=== PATIENT | female | born 1950 | race Caucasian/White ===

== ENCOUNTER 2020-11-16 16:38 | Emergency (ER) | payer MEDICARE, OTHER ==
[~2020-11-16] VITALS: Ht 157.4 cm; Wt 94.7 kg
[2020-11-16 16:54] VITALS: BP 143/82
[2020-11-16] MEDS ORDERED: KETOROLAC 60 MG/2 ML VIAL IM ONE (17:15)
--- NOTE | 2020-11-16 17:28 | ED Neck-Back Pain/Injury ---
General Chief Complaint: Head/Cervical Problems Stated Complaint: NECK PAIN History of Present Illness Date Seen by Provider: Nov 16, 2020 Time Seen by Provider: 17:00 Initial Comments Patient with history of RA not on therapy who presents with neck lower posterior neck pain for the past past 13 days. No radicular symptoms. No cough, fever, chills, sweats, of cough. Location: C-Spine Timing/Duration: Other Pain/Injury Location: Other Method of Injury: Other Modifying Factors: Improves With Other Associated Symptoms: other Allergies and Home Medications Allergies Coded Allergies: loratadine (Verified Allergy, Mild, Rash, 11/16/20) Sulfa (Sulfonamide Antibiotics) (Verified Allergy, Unknown, 11/16/20) Heart attack/stroke like symptoms bee venom protein (honey bee) (Verified Allergy, Unknown, Anaphylaxis, 11/16/20) ferrous fumarate (Verified Allergy, Unknown, Shortness of Breath, 11/16/20) methotrexate (Verified Allergy, Unknown, Rash, 11/16/20) prednisone (Verified Allergy, Unknown, 11/16/20) Hypertension rabbit dander (Verified Allergy, Unknown, Shortness of Breath, 11/16/20) tocilizumab (Verified Adverse Reaction, Unknown, 11/16/20) Insomnia Uncoded Allergies: Narcotics (Allergy, Severe, Shortness of Breath, 11/16/20) Home Medications Diazepam 10 Mg Tablet, 10 MG PO Q12H Prescribed by: CHRISTINA TALLEY on 11/16/201735 Methylprednisolone 4 Mg Tab.ds.pk, 4 MG PO UD PER DOSE PACK INSTRUCTIONS Prescribed by: CHRISTINA TALLEY on 11/16/201735 Patient Home Medication List Home Medication List Reviewed: Yes Review of Systems Constitutional: see HPI EENTM: see HPI Respiratory: see HPI Cardiovascular: see HPI Gastrointestinal: see HPI : Yes Musculoskeletal: see HPI Skin: see HPI Psychiatric/Neurological: See HPI All Other Systems Reviewed Negative Unless Noted: Yes Past Cxmyehj-Tncmtb-Olyecr Hx Past Med/Social Hx: Reviewed Nursing Past Med/Soc Hx Physical Exam Vital Signs Vital Signs - First Documented 11/16/20 16:54 Temp 36.9 Pulse 88 Resp 20 B/P (MAP) 143/82 (102) Pulse Ox 97 O2 Delivery Room Air Capillary Refill : Height, Weight, BMI Height: '" Weight: lbs. oz. kg; BMI Method: General Appearance: No Apparent Distress, Anxious HEENT: PERRL/EOMI, Pharynx Normal Neck: Supple, Other (Supple, diffuse lower neck pain, spamsm and tenderness . Pain reproduces with ROM. ) Cardiovascular: Regular Rate, Rhythm, Normal Peripheral Pulses Respiratory: Lungs Clear Gastrointestinal: Non Tender, Soft Back: Normal Inspection Extremity: Normal Capillary Refill, Normal Inspection, No Calf Tenderness Neurologic/Psychiatric: Alert, Oriented x3 Progress/Results/Core Measures Results/Orders My Orders Orders - CHRISTINA TALLEY DO Ketorolac Injection (Toradol Injection) (11/16/20 17:15) Medications Given in ED Current Medications Medications Dose Ordered Sig/Dong Route Start Time Stop Time Status Last Admin Dose Admin Ketorolac Tromethamine 60 mg ONCE ONCE IM 11/16/20 17:15 11/16/20 17:16 DC 11/16/20 17:33 60 MG Vital Signs/I&O 11/16/20 16:54 Temp 36.9 Pulse 88 Resp 20 B/P (MAP) 143/82 (102) Pulse Ox 97 O2 Delivery Room Air Departure Communication (Admissions) Reproducible neck pain, No focal neuro deficits, or signs of infection. Will treat supportively with PCP follow up. Impression Primary Impression: Cervical myofascial strain Disposition: HOME, SELF-CARE Condition: Stable Departure-Patient Inst. Decision time for Depature: 17:36 Referrals: NO,LOCAL PHYSICIAN (PCP) Primary Care Physician Patient Instructions: Cervical Muscle Strain Add. Discharge Instructions: All discharge instructions reviewed with patient and/or family. Voiced understanding. Scripts Methylprednisolone (Methylprednisolone Dose Pack) 4 Mg Tab.ds.pk 4 MG PO UD for 6 Days, #21 PKG PER DOSE PACK INSTRUCTIONS Prov: CHRISTINA TALLEY DO 11/16/20 Diazepam (Valium) 10 Mg Tablet 10 MG PO Q12H, #20 TAB Prov: CHRISTINA TALLEY DO 11/16/20 CHRISTINA TALLEY DO Nov 16, 2020 17:28
[2020-11-16] MEDS ORDERED: DIAZ10TA PO (17:36)
[2020-11-16] MEDS ORDERED: METH4TAB10 PO (17:36)
== END 2020-11-16 17:49 | disposition home or self-care (01) ==
LOC: ER FS 16:40
DX: S16.1XXA Strain of muscle, fascia and tendon at neck level, initial encounter (principal); F41.9 Anxiety disorder, unspecified; Z88.2 Allergy status to sulfonamides; Z88.8 Allergy status to other drugs, medicaments and biological substances; Z79.52 Long term (current) use of systemic steroids; X58.XXXA Exposure to other specified factors, initial encounter
CPT/HCPCS: 99284

== ENCOUNTER 2023-01-22 15:59 | Emergency (ER) | payer MEDICARE ==
[~2023-01-22 15:59] MED LIST: DIAZ10TA PO; METH4TAB10 PO
[2023-01-22] MEDS ORDERED: NS IV 500 ML 500 ML IV STA (16:09)
--- NOTE | 2023-01-22 16:14 | ED Neurological Problem ---
General Stated Complaint: STROKE LIKE SYMPTOMS Source: patient, EMS Exam Limitations: no limitations History of Present Illness Date Seen by Provider: Jan 22, 2023 Time Seen by Provider: 15:59 Initial Comments 72-year-old female with past medical history most notable for rheumatoid arthritis, osteoarthritis, and irritable bowel syndrome coming in via EMS from the clinic due to numbness. Patient started feeling "off" just before 3 PM today. She noticed some tingling in her left side. Has been ambulating. Was seen in the clinic and they called EMS. She denies this ever happening before, denies any cardiac history, no history of A-fib, does not smoke, no prior stroke, does not take any blood thinners, no chest pain, shortness of breath, abdominal pain, nausea, vomiting, diarrhea, fever, chills, focal weakness, vision changes, headache, neck stiffness, or any other concerns. Allergies and Home Medications Allergies Coded Allergies: loratadine (Verified Allergy, Mild, Rash, 11/16/20) Sulfa (Sulfonamide Antibiotics) (Verified Allergy, Unknown, 11/16/20) Heart attack/stroke like symptoms bee venom protein (honey bee) (Verified Allergy, Unknown, Anaphylaxis, 11/16/20) ferrous fumarate (Verified Allergy, Unknown, Shortness of Breath, 11/16/20) methotrexate (Verified Allergy, Unknown, Rash, 11/16/20) prednisone (Verified Allergy, Unknown, 11/16/20) Hypertension rabbit dander (Verified Allergy, Unknown, Shortness of Breath, 11/16/20) tocilizumab (Verified Adverse Reaction, Unknown, 11/16/20) Insomnia Uncoded Allergies: Narcotics (Allergy, Severe, Shortness of Breath, 11/16/20) Patient Home Medication List Home Medication List Reviewed: Yes Diazepam (Valium) 10 Mg Tablet, 10 MG PO Q12H Prescribed by: CHRISTINA TALLEY on 11/16/201735 Doxycycline Hyclate (Doxycycline Hyclate) 100 Mg Tablet, 100 MG PO BID Prescribed by: DEBRA CASTELLANOS on 01/22/23 180 Methylprednisolone (Methylprednisolone Dose Pack) 4 Mg Tab.ds.pk, 4 MG PO UD Prescribed by: CHRISTINA TALLEY on 11/16/201735 Review of Systems Review of Systems Constitutional: see HPI Eyes: No Symptoms Reported Respiratory: no symptoms reported Cardiovascular: no symptoms reported Gastrointestinal: no symptoms reported Genitourinary: no symptoms reported Musculoskeletal: no symptoms reported Skin: no symptoms reported Psychiatric/Neurological: See HPI Past Oizfuxo-Tbuzgv-Orlpxy Hx Patient Social History Tobacco Use?: No Seasonal Allergies Seasonal Allergies: No Past Medical History Surgeries: No Respiratory: Yes Asthma, Chronic Bronchitis, COPD Cardiac: No Neurological: No Genitourinary: No Gastrointestinal: Yes Gastroesophageal Reflux, Irritable Bowel Musculoskeletal: No Rheumatoid Arthritis Endocrine: Yes Hypothyroidsim HEENT: No Cancer: No Psychosocial: No Integumentary: No Blood Disorders: No Physical Exam Vital Signs Vital Signs - First Documented 01/22/23 16:02 Temp 36.2 Pulse 72 Resp 16 B/P (MAP) 171/94 (119) Pulse Ox 94 O2 Delivery Room Air Capillary Refill : Height, Weight, BMI Height: '" Weight: lbs. oz. kg; 38.00 BMI Method: General Appearance: WD/WN, no apparent distress HEENT: PERRL/EOMI, normal ENT inspection, pharynx normal Neck: non-tender, full range of motion, supple, normal inspection Respiratory: chest non-tender, lungs clear, normal breath sounds, no respira tory distress, no accessory muscle use Cardiovascular: regular rate, rhythm, no edema, no murmur Gastrointestinal: normal bowel sounds, non tender; No distended, No guarding, No rebound Back: normal inspection, no CVA tenderness Extremities: normal range of motion, non-tender, normal inspection, no pedal edema, no calf tenderness, normal capillary refill Neurologic/Psychiatric: jockey's agent II-XII nml as tested, no motor/sensory deficits, alert, normal mood/affect, oriented x 3, other (Normal visual rashid and visual acuity) Crainal Nerves: normal hearing, normal speech, PERRL Coordination/Gait: normal finger to nose, normal gait Motor/Sensory: no motor deficit, no sensory deficit, no pronator drift Skin: normal color, warm/dry Stroke Onset of Symptoms Date of Onset of Symptoms: Jan 22, 2023 Time of Symptom Onset: 14:50 Onset of Symptoms: Yes NIH Stroke Scale Assessment Select: Initial Level of Consciousness: 0=Alert (0), Level of Consciousness- Questions: 0=Answers both month/age (0), LOC Commands: 0=Performs both tasks (0), Visual Rashid: 0=No visual loss (0), Facial Movement (Facial Paresis): 0=Normal symmetrical mnt (0), Motor Function-Arms Right: 0=No drift (0), Motor Function-Legs Right: 0=No drift (0), Limb Ataxia: 0=Absent (0), Sensory: 0=Normal:no loss (0), Best Language: 0=No aphasia (0), Dysarthria: 0=Normal (0), Extinction & Inattention: 0=No abnormality (0), Total: 0 Stroke Thrombolytic Exclusion Age 18 or Over: Yes Acute intenal hemorrhage: No Improving Symptoms: Yes TPA Contraindication: Yes IV - TPa Received IV - TPa Procedure Performed?: No Progress/Results/Core Measures Results/Orders Lab Results Laboratory Tests Test 01/22/23 16:04 01/22/23 16:10 01/22/23 16:51 Range/Units Glucometer 115 H 70-110 MG/DL White Blood Count 9.3 4.3-11.0 10^3/uL Red Blood Count 4.96 3.80-5.11 10^6/uL Hemoglobin 14.4 11.5-16.0 g/dL Hematocrit 43 35-52 % Mean Corpuscular Volume 86 80-99 fL Mean Corpuscular Hemoglobin 29 25-34 pg Mean Corpuscular Hemoglobin Concent 34 32-36 g/dL Red Cell Distribution Width 14.0 10.0-14.5 % Platelet Count 401 H 130-400 10^3/uL Mean Platelet Volume 8.9 L 9.0-12.2 fL Immature Granulocyte % (Auto) 1 % Neutrophils (%) (Auto) 45 42-75 % Lymphocytes (%) (Auto) 40 12-44 % Monocytes (%) (Auto) 8 0-12 % Eosinophils (%) (Auto) 5 0-10 % Basophils (%) (Auto) 1 0-10 % Neutrophils # (Auto) 4.2 1.8-7.8 10^3/uL Lymphocytes # (Auto) 3.8 1.0-4.0 10^3/uL Monocytes # (Auto) 0.7 0.0-1.0 10^3/uL Eosinophils # (Auto) 0.5 H 0.0-0.3 10^3/uL Basophils # (Auto) 0.1 0.0-0.1 10^3/uL Immature Granulocyte # (Auto) 0.1 0.0-0.1 10^3/uL Prothrombin Time 12.9 12.2-14.7 SEC INR Comment 0.9 0.8-1.4 Activated Partial Thromboplast Time 29 24-35 SEC Sodium Level 138 135-145 MMOL/L Potassium Level 4.1 3.6-5.0 MMOL/L Chloride Level 102 98-107 MMOL/L Carbon Dioxide Level 25 21-32 MMOL/L Anion Gap 11 5-14 MMOL/L Blood Urea Nitrogen 19 H 7-18 MG/DL Creatinine 0.88 0.60-1.30 MG/DL Estimat Glomerular Filtration Rate 69 BUN/Creatinine Ratio 22 Glucose Level 111 H 70-105 MG/DL Calcium Level 8.8 8.5-10.1 MG/DL Corrected Calcium 9.1 8.5-10.1 MG/DL Total Bilirubin 0.3 0.1-1.0 MG/DL Aspartate Amino Transf (AST/SGOT) 40 H 5-34 U/L Alanine Aminotransferase (ALT/SGPT) 21 0-55 U/L Alkaline Phosphatase 147 H 40-136 U/L Troponin I < 0.30 <0.30 NG/ML Total Protein 7.9 6.4-8.2 GM/DL Albumin 3.6 3.2-4.5 GM/DL Urine Color YELLOW Urine Clarity CLEAR Urine pH 5.5 5-9 Urine Specific [place] >=1.030 1.016-1.022 Urine Protein NEGATIVE NEGATIVE Urine Glucose (UA) NEGATIVE NEGATIVE Urine Ketones NEGATIVE NEGATIVE Urine Nitrite NEGATIVE NEGATIVE Urine Bilirubin NEGATIVE NEGATIVE Urine Urobilinogen 0.2 < = 1.0 MG/DL Urine Leukocyte Esterase NEGATIVE NEGATIVE Urine RBC (Auto) NEGATIVE NEGATIVE Urine RBC NONE /HPF Urine WBC NONE /HPF Urine Squamous Epithelial Cells 0-2 /HPF Urine Crystals NONE /LPF Urine Bacteria NEGATIVE /HPF Urine Casts NONE /LPF Urine Mucus NEGATIVE /LPF Urine Culture Indicated NO My Orders Orders - DEBRA CASTELLANOS MD Cbc With Automated Diff (01/22/23 16:09) Protime With Inr (01/22/23 16:09) Partial Thromboplastin Time (01/22/23 16:09) Comprehensive Metabolic Panel (01/22/23 16:09) Troponin I Fs (01/22/23 16:09) Ua Culture If Indicated (01/22/23 16:09) Chest 1 View Ap/Pa Only (01/22/23 16:09) Ekg Tracing (01/22/23 16:09) Accucheck Stat ONCE (01/22/23 16:09) Ed Iv/Invasive Line Start (01/22/23 16:09) Vital Signs Stroke Patient Q15M (01/22/23 16:09) Ct Head Wo-R/O Stroke (01/22/23 16:09) O2 (01/22/23 16:09) Intake & Output 06,14,22 (01/22/23 16:09) Monitor-Rhythm Ecg Trace Only (01/22/23 16:09) Dysphagia Screening Tool Q10MX1 (01/22/23 16:09) Ns Iv 500 Ml (Sodium Chloride 0.9%) (01/22/23 16:09) Ct Angio Head/Neck (01/22/23 17:03) Iohexol Injection (Omnipaque 350 Mg/Ml 1 (01/22/23 17:30) Received Contrast (Hold Metformin- Contr (01/22/23 17:30) Ns (Ivpb) (Sodium Chloride 0.9% Ivpb Bag (01/22/23 17:30) Medications Given in ED Current Medications Medications Dose Ordered Sig/Dong Route Start Time Stop Time Status Last Admin Dose Admin Iohexol 100 ml ONCE ONCE IV 01/22/23 17:30 01/22/23 17:31 DC 01/22/23 17:27 85 ML Sodium Chloride 100 ml ONCE ONCE IV 01/22/23 17:30 01/22/23 17:31 DC 01/22/23 17:27 100 ML Vital Signs/I&O 01/22/23 01/22/23 01/22/23 16:02 16:23 16:41 Temp 36.2 Pulse 72 70 Resp 16 16 B/P (MAP) 171/94 (119) 157/69 Pulse Ox 94 94 O2 Delivery Room Air Room Air Progress Progress Note : Progress Note 72-year-old female with above history coming in due to subjective left-sided weakness, tingling, and just feeling off. ABCs were intact and vitals were stable on presentation. Objectively, her NIH is 0 on arrival. The patient is ambulating with her cane at baseline despite her subjective weakness. Blood sugar was 115 on arrival which clearly is not the cause of her symptoms. An IV was placed and basic labs were obtained and were significant for a normal white blood cell count, normal creatinine, normal electrolytes essentially, negative troponin. Chest x-ray on my interpretation with no obvious pneumonia. Although the patient does have significant productive cough. CT head without contrast on my interpretation with no obvious intracranial hemorrhage. The radiologist read it as negative for acute findings. At this point I discussed the case with the stroke neurologist, Dr. Nix, at 16:58. She recommended a CT head and neck angiogram. If there is high-grade stenosis, the patient likely needs admission. If the CT angiogram is negative for any acute findings, the patient will need an outpatient MRI and echo within the next 1 to 2 weeks. She agrees that given there are no objective findings, she would not give tPA at this time. The CT angiogram of the head and neck were negative for any severe stenosis. 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 I believe the patient is stable for discharge with outpatient follow-up as she does appear to be completely neuro intact. She does have a significantly productive cough the entire time in the ER, we will send her home with a prescription for doxycycline as this may be causing worsening of her symptoms. She needs to have an MRI and echo ordered as an outpatient. I will write a prescription for her, however she may need prior authorization and may need to follow-up with her regular doctor to get this done. She was then discharged home in stable condition with strict return precautions. Initial ECG Impression Date: Jan 22, 2023 Initial ECG Impression Time: 16:34 Initial ECG Rhythm: Normal Sinus Comment Narrow QRS, normal axis, no significant ST changes or T wave abnormalities Diagnostic Imaging Diagonstic Imaging: Xray (chest), CT (head) Comments NAME: ILEANA SARAVIA Avery [facility] REC#: [id number] PT STATUS: REG ER : 1950 PHYSICIAN: DEBRA CASTELLANOS MD ADMIT DATE: 01/22/23/ER FS Draft Date of Exam:01/22/23 CT HEAD WO-R/O STROKE PROCEDURE: CT head wo r/o stroke. TECHNIQUE: Multiple contiguous axial images were obtained through the brain without the use of intravenous contrast. Auto Exposure Controls were utilized during the CT exam to meet ALARA standards for radiation dose reduction. INDICATION: Left weakness. CT HEAD: CT images of the head were obtained. FINDINGS: Ventricles and sulci are within normal limits for size. There is no intracranial hemorrhage identified. There is no abnormal mass effect or shift of midline structures. IMPRESSION: Unremarkable CT of the head. Dictated on workstation # [id number] Dict: 01/22/23 1633 Trans: 01/22/23 1640 AS6 [id number] Interpreted by: MARTIN YUAN MD Electronically signed by: ROBERT VIA PULLMAN, [place] NAME: ILEANA SARAVIA MED REC#: [id number] PT STATUS: REG ER : 1950 PHYSICIAN: DEBRA CASTELLANOS MD ADMIT DATE: 01/22/23/ER FS Draft Date of Exam:01/22/23 CHEST 1 VIEW AP/PA ONLY CLINICAL INDICATION: Patient with left-sided weakness and cough. EXAM: Portable chest x-ray upright view. COMPARISON: None. FINDINGS: Lungs/pleura: There are increased lung markings involving both lungs which may be related to atelectasis and/or scarring. There is no lung infiltrate. There is no pneumothorax. There is no pleural effusion. Mediastinum: Unremarkable. Pulmonary vasculature: Unremarkable. Heart: Unremarkable. Bones/extrathoracic soft tissue: There are degenerative spurs involving the thoracic spine. IMPRESSION: There is no radiographic evidence of acute cardiopulmonary process. Dictated on workstation # [id number] Dict: 01/22/23 1640 Trans: 01/22/23 1642 AS6 [id number] Interpreted by: RYDER GALINDO MD Electronically signed by: NAME: MELINDA SARAVIANATE Varela MED REC#: [id number] PT STATUS: REG ER : 1950 PHYSICIAN: DEBRA CASTELLANOS MD ADMIT DATE: 01/22/23/ER FS Draft Date of Exam:01/22/23 CT ANGIO HEAD/NECK PROCEDURE: CT angiography of the head and CT angiography of the neck with and without contrast. TECHNIQUE: Contiguous noncontrast images were obtained from the skull base through the vertex. After intravenous contrast administration, helical CT angiography of the neck was performed. Source data was reformatted into 3D MIP projections. Delayed post contrast acquisition was also obtained. Auto Exposure Controls were utilized during the CT exam to meet ALARA standards for radiation dose reduction. INDICATION: Left-sided weakness. CT HEAD: The ventricles are normal in size, shape and position. There is no mass or hemorrhage. There is no extra-axial fluid collection. IMPRESSION: Negative CT head. CTA HEAD: The postcontrast images do not show any abnormal areas of enhancement. There appears to be a hypoplastic right A1 segment. Left A1 segment is widely patent and both A2 segments are patent. Middle cerebral arteries are widely patent. Posterior cerebral arteries are widely patent. Basilar artery and branches appear to be widely patent. CTA NECK: Brachiocephalic origins are widely patent. There is tortuosity of the common and internal carotid arteries, bilaterally, but no stenosis or occlusion seen. IMPRESSION: Unremarkable CTA head and neck. No acute abnormality is seen. Patient has a hypoplastic right A1 segment. Dictated on workstation # [id number] Dict: 01/22/23 1745 Trans: 01/22/23 1825 [facility] [id number] Interpreted by: BENJAMIN GARDINER MD Electronically signed by: Departure Impression Primary Impression: Numbness Additional Impression: Productive cough Disposition: 01 HOME, SELF-CARE Condition: Stable Departure-Patient Inst. Decision time for Depature: 18:20 Referrals: BRIE LIGHT MD Patient Instructions: Transient Ischemic Attack (DC), Cough, Adult ED Add. Discharge Instructions: It is still possible you have had a very small stroke. The only way to fully see if this has happened is to get an MRI of your brain. The stroke neurologist at recommended you get one within the next 1 to 2 weeks as well as an echocardiogram of your heart. We will send an order form with you, however sometimes they are not accepted from emergency medicine physicians. Dr. Light may need to order this if that is the case and do prior authorization. Call the domestic travel consultant tomorrow at [phone] to try and schedule the MRI brain and complete Echo 2D of your heart. If they are unable to do this then call Dr. Light and say the stroke neurologist wants this done within the next 1-2 weeks. For your productive cough, this could be making her symptoms worse if there is a bacterial infection. You will be on antibiotics for the next week which was sent to your pharmacy. If you have any weakness where you cannot move 1 side of your body at all, numbness where you cannot feel 1 side of your body at all, or any other significant concerns, then please call your doctor or come back to the ER. Scripts Doxycycline Hyclate (Doxycycline Hyclate) 100 Mg Tablet 100 MG PO BID for 7 Days, #14 TAB 0 Refills Prov: DEBRA CASTELLANOS MD 01/22/23 Work/School Note: Work Release Form Date Seen in the Emergency Department: Jan 22, 2023 Return to Work: Jan 24, 2023 Restrictions: No Restrictions DEBRA CASTELLANOS MD Jan 22, 2023 16:14
[2023-01-22 16:19] LABS: BASOPHILS # (AUTO) 0.1 10^3/uL (0.0-0.1); BASOPHILS % (AUTO) 1 % (0-10); EOSINOPHILS # (AUTO) 0.5 10^3/uL (0.0-0.3); EOSINOPHILS % (AUTO) 5 % (0-10); HEMATOCRIT 43 % (35-52); HEMOGLOBIN 14.4 g/dL (11.5-16.0); LYMPHOCYTES # (AUTO) 3.8 10^3/uL (1.0-4.0); LYMPHOCYTES % (AUTO) 40 % (12-44); MEAN CORPUSCULAR HEMOGLOBIN 29 pg (25-34); MEAN CORPUSCULAR HGB CONC 34 g/dL (32-36); MEAN CORPUSCULAR VOLUME 86 fL (80-99); MEAN PLATELET VOLUME 8.9 fL (9.0-12.2); MONOCYTES # (AUTO) 0.7 10^3/uL (0.0-1.0); MONOCYTES % (AUTO) 8 % (0-12); NEUTROPHILS # (AUTO) 4.2 10^3/uL (1.8-7.8); NEUTROPHILS % (AUTO) 45 % (42-75); PLATELET COUNT 401 10^3/uL (130-400); WHITE BLOOD COUNT 9.3 10^3/uL (4.3-11.0)
[2023-01-22 16:23] VITALS: BP_SYST 142; BP_SYST 157; BP_DIAS 69; BP_DIAS 76
[2023-01-22 16:39] LABS: INR 0.9 (0.8-1.4); PROTHROMBIN TIME PATIENT 12.9 SEC (12.2-14.7)
--- NOTE | 2023-01-22 16:41 | Diagnostic Imaging Report ---
PROCEDURE: CT head wo r/o stroke. TECHNIQUE: Multiple contiguous axial images were obtained through the brain without the use of intravenous contrast. Auto Exposure Controls were utilized during the CT exam to meet ALARA standards for radiation dose reduction. INDICATION: Left weakness. CT HEAD: CT images of the head were obtained. FINDINGS: Ventricles and sulci are within normal limits for size. There is no intracranial hemorrhage identified. There is no abnormal mass effect or shift of midline structures. IMPRESSION: Unremarkable CT of the head. Dictated by: Dictated on workstation # [id number]
[2023-01-22 16:42] LABS: ALANINE AMINOTRANSFERASE 21 U/L (0-55); ALKALINE PHOSPHATASE 147 U/L (40-136); BILIRUBIN,TOTAL 0.3 MG/DL (0.1-1.0); BUN/CREATININE RATIO 22; CALCIUM 8.8 MG/DL (8.5-10.1); CARBON DIOXIDE 25 MMOL/L (21-32); CHLORIDE 102 MMOL/L (98-107); CREATININE SERUM 0.88 MG/DL (0.60-1.30); GFR ESTIMATED 69; GLUCOSE 111 MG/DL (70-105); POTASSIUM 4.1 MMOL/L (3.6-5.0); SODIUM 138 MMOL/L (135-145)
[2023-01-22 16:43] LABS: ALBUMIN 3.6 GM/DL (3.2-4.5); TOTAL PROTEIN 7.9 GM/DL (6.4-8.2)
--- NOTE | 2023-01-22 16:43 | Diagnostic Imaging Report ---
CLINICAL INDICATION: Patient with left-sided weakness and cough. EXAM: Portable chest x-ray upright view. COMPARISON: None. FINDINGS: Lungs/pleura: There are increased lung markings involving both lungs which may be related to atelectasis and/or scarring. There is no lung infiltrate. There is no pneumothorax. There is no pleural effusion. Mediastinum: Unremarkable. Pulmonary vasculature: Unremarkable. Heart: Unremarkable. Bones/extrathoracic soft tissue: There are degenerative spurs involving the thoracic spine. IMPRESSION: There is no radiographic evidence of acute cardiopulmonary process. Dictated by: Dictated on workstation # [id number]
[2023-01-22 17:04] LABS: BILIRUBIN,URINE NEGATIVE (NEGATIVE); CLARITY,URINE CLEAR; COLOR,URINE YELLOW; GLUCOSE, URINE (UA) NEGATIVE (NEGATIVE); KETONES,URINE NEGATIVE (NEGATIVE); LEUKOCYTE ESTERASE ,URINE NEGATIVE (NEGATIVE); NITRITE,URINE NEGATIVE (NEGATIVE); PH,URINE 5.5 (5-9); PROTEIN,URINE NEGATIVE (NEGATIVE)
[2023-01-22 17:12] LABS: BACTERIA,URINE NEGATIVE /HPF; SQUAMOUS EPITHELIAL CELL,UR 0-2 /HPF
[2023-01-22] MEDS ORDERED: NS 100 ML (IVPB) BAG IV ONE (17:30)
[2023-01-22] MEDS ORDERED: HOLD METFORMIN - RECEIVED CONTRAST 20 ML VIAL IV SCH (17:30)
[2023-01-22] MEDS ORDERED: IOHEXOL 350 MG/ML 100 ML (OMNIPAQUE 350) VIAL IV ONE (17:30)
[2023-01-22] MEDS ORDERED: DOXY100T2 PO (18:04)
--- NOTE | 2023-01-22 18:26 | Diagnostic Imaging Report ---
PROCEDURE: CT angiography of the head and CT angiography of the neck with and without contrast. TECHNIQUE: Contiguous noncontrast images were obtained from the skull base through the vertex. After intravenous contrast administration, helical CT angiography of the neck was performed. Source data was reformatted into 3D MIP projections. Delayed post contrast acquisition was also obtained. Auto Exposure Controls were utilized during the CT exam to meet ALARA standards for radiation dose reduction. INDICATION: Left-sided weakness. CT HEAD: The ventricles are normal in size, shape and position. There is no mass or hemorrhage. There is no extra-axial fluid collection. IMPRESSION: Negative CT head. CTA HEAD: The postcontrast images do not show any abnormal areas of enhancement. There appears to be a hypoplastic right A1 segment. Left A1 segment is widely patent and both A2 segments are patent. Middle cerebral arteries are widely patent. Posterior cerebral arteries are widely patent. Basilar artery and branches appear to be widely patent. CTA NECK: Brachiocephalic origins are widely patent. There is tortuosity of the common and internal carotid arteries, bilaterally, but no stenosis or occlusion seen. IMPRESSION: Unremarkable CTA head and neck. No acute abnormality is seen. Patient has a hypoplastic right A1 segment. Dictated by: Dictated on workstation # [id number]
[2023-01-22 18:44] VITALS: BP 154/92
== END 2023-01-22 18:45 | disposition home or self-care (01) ==
LOC: EDUNIT# 15:59 → ER FS 16:00
DX: R20.0 Anesthesia of skin (principal); R05.9 Cough, unspecified; Z88.1 Allergy status to other antibiotic agents
CPT/HCPCS: 36415; 70450; 70496; 70498; 71045; 80053; 81000; 82947; 84484; 85025; 85610; 85730; 93005; 93041; Q9967

== ENCOUNTER → 2023-02-03 | Outpatient (CLI) | payer MEDICARE ==
[~2023-02-03] MED LIST changes: +DOXY100T2 PO
== END ==
LOC: CARDFS 09:58
PROVIDERS: ATTEND Emergency Medicine
DX: G45.9 Transient cerebral ischemic attack, unspecified (principal)
CPT/HCPCS: 93306

== ENCOUNTER → 2023-02-04 | Outpatient (CLI) | payer MEDICARE ==
--- NOTE | 2023-02-04 17:42 | Diagnostic Imaging Report ---
PROCEDURE: MR imaging of the brain without contrast. TECHNIQUE: Multiplanar, multisequence MR imaging of the brain was performed without contrast. INDICATION: Weakness. Difficulty speaking. COMPARISON: 01/22/2023. FINDINGS: No acute ischemia, mass, or hemorrhage. Scattered focal T2 hyperintense signal is seen in the periventricular and subcortical white matter. The ventricles, cortical sulci, and basilar cisterns are symmetric and unremarkable. There is flattening of the pituitary. The brainstem and posterior fossa are unremarkable. The paranasal sinuses and mastoid air cells demonstrate normal signal characteristics. The globes and orbits are symmetric and unremarkable. The scalp and calvarium have a normal appearance. IMPRESSION: 1. No acute ischemia, mass, or hemorrhage. 2. Scattered chronic microvascular disease in the periventricular and subcortical white matter. Dictated by: Dictated on workstation # [id number]
== END ==
LOC: RAD 14:45
PROVIDERS: ATTEND Emergency Medicine
DX: G45.9 Transient cerebral ischemic attack, unspecified (principal); R90.82 White matter disease, unspecified
CPT/HCPCS: 70551